=== PATIENT | male | born 1950 | race Caucasian/White ===

== ENCOUNTER → 2024-08-07 14:57 | Outpatient (REF) | payer MEDICARE, OTHER, SELFPAY | LOC: HWRCS 14:57 | PROVIDERS: ATTENDING PHYSICIAN Internal Medicine Cardiovascular Disease; FAMILY PHYSICIAN Family Medicine | DX: I48.21 Permanent atrial fibrillation (principal); I10 Essential (primary) hypertension; I48.19 Other persistent atrial fibrillation | CPT/HCPCS: 93306 ==

== ENCOUNTER 2025-03-11 07:04 | Day surgery (SDC) | payer MEDICARE, OTHER, SELFPAY | END 2025-03-11 09:56 | disposition home or self-care (01) | LOC: CATH 07:04 | PROVIDERS: ATTENDING PHYSICIAN Internal Medicine Cardiovascular Disease; FAMILY PHYSICIAN Family Medicine | DX: I08.1 Rheumatic disorders of both mitral and tricuspid valves (principal); I48.21 Permanent atrial fibrillation; I10 Essential (primary) hypertension; E78.5 Hyperlipidemia, unspecified; J44.9 Chronic obstructive pulmonary disease, unspecified; Z72.0 Tobacco use; Z79.01 Long term (current) use of anticoagulants | CPT/HCPCS: 93312; 93320; 93325 ==

== ENCOUNTER 2025-03-18 06:32 | Day surgery (SDC) | payer MEDICARE, OTHER, SELFPAY ==
[2025-03-18] VITALS (14 sets, daily range): BP systolic 98–123; BP diastolic 58–87; BMI 27.1
[2025-03-18] MEDS: NSS 250 ML IV (07:00)
--- NOTE | 2025-03-18 08:03 | ITS.CL.CATH ---
Scientist Engineer - Catheterization
Cardiac Catheterization
Procedure Report:
CARDIAC CATHETERIZATION REPORT
Date of Procedure: 03/18/2025
Referring: Reymundo Polk M.D.
INDICATION: Severe mitral valve regurgitation.
PROCEDURE:
1. Left heart catheterization.
2. Coronary angiography.
A total of 23 minutes of procedural/moderate sedation was utilized. An independent medical imaging technologist was present to assist with and help manage the patient's level of consciousness and physiologic status.
ACCESS:
1. 6 [place] right rate artery using a modified Seldinger technique.
CATHETERS:
1. 5 [place] JR4.
2. 5 [place] JL 3.5.
HEMODYNAMIC DATA
Weight (kg): 83.2
AO (s/d/x, mmHg): 100/60/79
LV (s/x mmHg): 102/17
LEFT VENTRICULOGRAPHY: Not performed.
CORONARY ANGIOGRAPHY
Dominance: Right.
Left Main: Normal size, trifurcating vessel. There is no coronary artery disease.
LAD: Normal size vessel giving rise to 1 significant diagonal before wrapping around the apex. There is no coronary artery disease.
Ramus: Medium size vessel supplying a substantial portion of the lateral wall. There is no coronary artery disease.
Circumflex: Normal size, nondominant vessel that is essentially a single obtuse marginal which gives rise to several daughter vessels in its distal margin. There are minor luminal irregularities.
RCA: Normal size, dominant vessel. There is a 20-30% lesion in the proximal vessel.
INTERVENTION(S)
None.
Closure Device: Vascular band
Radiation (mGy): 444.47
DAP (cm2.Gy): 30.4472
Fluoroscopy time (minutes): 1.9
CONCLUSIONS
1. Right dominant circulation with luminal irregularities in the circumflex and a 20-30% lesion in the proximal RCA.
2. Mildly elevated filling pressures (LVEDP = 17 mmHg at 83.2 kg).
3. Severe mitral valve regurgitation on echocardiography.
RECOMMENDATIONS:
1. Expectant management after cardiac catheterization via right radial approach.
2. Limited weight bearing on the right for one week.
3. Continued follow-up with outpatient cardiology and CT surgery regarding mitral valve repair/replacement.
4. Aggressive primary prevention with high-dose, high potency statin. Increase atorvastatin to 40 mg daily. Goal LDL <55.
5. OMT/GDMT as hemodynamics will tolerate.
Copy to: Reymundo Polk M.D., Malvin Acosta M.D., Jagjit Bray D.O.
Daniel Watt DO, FACC, FACP
[2025-03-18] MEDS: NSS 1000 IV (08:10)
== END 2025-03-18 11:00 | disposition home or self-care (01) ==
LOC: CATH 06:32
PROVIDERS: ATTENDING PHYSICIAN Internal Medicine Cardiovascular Disease; FAMILY PHYSICIAN Family Medicine; OTHER PHYSICIAN Internal Medicine Cardiovascular Disease
DX: I34.0 Nonrheumatic mitral (valve) insufficiency (principal); I25.10 Atherosclerotic heart disease of native coronary artery without angina pectoris; I10 Essential (primary) hypertension; J44.9 Chronic obstructive pulmonary disease, unspecified; F17.210 Nicotine dependence, cigarettes, uncomplicated; Z79.01 Long term (current) use of anticoagulants
CPT/HCPCS: 99152; C1894; 93458; Q9967

== ENCOUNTER → 2025-03-23 11:08 | Outpatient (REF) | payer MEDICARE, OTHER, SELFPAY | LOC: RCS 11:08 | PROVIDERS: ATTENDING PHYSICIAN Internal Medicine Cardiovascular Disease; FAMILY PHYSICIAN Family Medicine | DX: I48.19 Other persistent atrial fibrillation (principal); I48.21 Permanent atrial fibrillation; I34.0 Nonrheumatic mitral (valve) insufficiency; I10 Essential (primary) hypertension | CPT/HCPCS: 93306 ==

== ENCOUNTER → 2025-04-02 13:05 | Outpatient (REF) | payer MEDICARE, OTHER, SELFPAY | LOC: RAD 13:05 | PROVIDERS: ATTENDING PHYSICIAN Thoracic Surgery (Cardiothoracic Vascular Surgery); FAMILY PHYSICIAN Family Medicine | DX: I34.0 Nonrheumatic mitral (valve) insufficiency (principal); Z01.810 Encounter for preprocedural cardiovascular examination | CPT/HCPCS: 71275; 74174; Q9967 ==

== ENCOUNTER 2025-04-28 05:06 | Inpatient (IN) | payer MEDICARE, OTHER, SELFPAY ==
[2025-04-23 12:00] VITALS: BMI 26.3
[2025-04-23 12:35] LABS: Hematocrit 40.9 % (39.0-52.0); Hemoglobin 14.6 g/dL (13.0-18.0); Mean Corp Hgb Conc. 35.7 g/dL (33.0-37.0); Mean Corpuscular Volume 91.5 fL (80.0-94.0); Nucleated Red Blood Cells % 0 % (-); Platelet Count 244 10^3/uL (130-400); Red Cell Dist. Width 12.4 % (11.5-14.5)
[2025-04-23 12:42] LABS: Urine Character Clear (Clear)
[2025-04-23 12:46] LABS: INR 1.57; PT 19.0 Sec (11.4-14.6)
[2025-04-23 13:09] LABS: ALT (SGPT) 20 U/L (0-50); AST (SGOT) 18 U/L (17-59); Albumin 4.6 g/dl (3.5-5.0); Alkaline Phosphatase 85 U/L (38-126); Blood Urea Nitrogen 15 mg/dl (9-20); Calcium 9.6 mg/dl (8.4-10.2); Carbon Dioxide 22 mmol/L (22-30); Chloride 107 mmol/L (98-107); Estimated Creatinine Clearance 84 ml/min; Glucose 108 mg/dl (70-99); Potassium 4.3 mmol/L (3.5-5.1); Sodium 137 mmol/L (135-145); Total Protein 7.1 g/dl (6.3-8.2); eGFR > 60.00
[2025-04-23 13:59] LABS: Glycohemoglobin (HgbA1c) 5.6 % (4.0-5.6)
--- NOTE | 2025-04-23 14:03 | CM ---
spoke to pt in PAT's, we discussed pre op MVR teaching including driving and lifting restrictions. he is prev indep, lives with his S.O. in a 2 story home with no steps to enter. he denies any dme's. he has the ct surgery educ book, soap and
instructions. he is agreeable to a f/u visit from the ct transitional care nurses after dc. plan is for MVR 04/28/25, cm role explained and all questions answered.
[2025-04-28] VITALS (18 sets, daily range): BP systolic 106–138; BP diastolic 65–96; PULSE 63–68; BMI 25.8
[2025-04-28] MEDS: BACTROBAN 2% OINTMENT 1 APPLIC NASAL ×2 (05:46→19:42)
[2025-04-28] MEDS: LOPRESSOR 25 MG PO (05:56)
[2025-04-28] MEDS: MAGNESIUM OXIDE 500 MG PO (05:57)
[2025-04-28] MEDS: PROTONIX 40 MG PO (05:57)
--- NOTE | 2025-04-28 06:07 | PTCARENOTE ---
Pt admitted to CVICU at 0512. Clipped and prepped for CVOR per protocol. Pt had 2 Hibiclens showers at home. CHG bath done. VS done. Weighed. Pre-op meds given. Metoprolol dosing discussed with PA. Medication reconciliation done. Dr. Acosta at
bedside to see pt this am. Pt planned to go to CVOR at ~0630 with 2 RN escort.
--- NOTE | 2025-04-28 06:16 | W.CVOR.SURPR ---
CVOR Surgeon Immed Pre Op
-
I have examined this patient prior to performance of the scheduled procedure.
The patient's condition is unchanged from the time of the dictated/written History and
Physical and the patient is able to undergo the scheduled procedure.
MV Repair/Replacement, LA MAZE, SHIRLEY E, +/- TV Repair
[2025-04-28 07:39] LABS: Urine Character Clear (Clear)
[2025-04-28 07:55] LABS: ACT+ - POC 120 Seconds (82-134)
--- NOTE | 2025-04-28 08:00 | CM ---
Reviewed chart. Mr. Carranza is in the operating room today. Prior to admission he resides with his significant other in a two story home without any steps to enter. Prior to admission he was independent with ambulation and adls. He has a
prescription plan. Medical work-up in progress. The discharge plan is to return home with his significant other and [facility] when medically stable.
[2025-04-28 08:17] LABS: Urine Red Blood Cell 0-2 /HPF (0-2); Urine White Cell 0-2 /HPF (0-5)
[2025-04-28 08:55] LABS: ACT+ - POC 531 Seconds (82-134)
[2025-04-28 09:26] LABS: B.E. - POC -2.1 mmol/L; Glucose - POC 108 mg/dl (70-99); HCO3 - POC 23 mmol/L (21-28); Hematocrit - POC 34 % PCV (42-52); Hemodilution- POC No; Hemoglobin Calculated - POC 11.6; Ionized Calcium - POC 1.08 mmol/L (1.15-1.33); Lactate - POC 0.40 mmol/L (0.36-0.75); O2 Saturation %Calculated-POC 100.0 % (94-98); PCO2 - POC 41 mmHg (35-48); PO2 - POC 387 mmHg (83-108); Potassium - POC 4.1 mmol/L (3.5-5.1); Sodium - POC 142 mmol/L (136-145); Specimen Type - POC Arterial; pH - POC 7.36 (7.35-7.45)
[2025-04-28 09:40] LABS: ACT+ - POC 614 Seconds (82-134)
[2025-04-28 10:09] LABS: ACT+ - POC 483 Seconds (82-134)
[2025-04-28 10:41] LABS: B.E. - POC -0.8 mmol/L; Glucose - POC 198 mg/dl (70-99); HCO3 - POC 26 mmol/L (21-28); Hematocrit - POC 38 % PCV (42-52); Hemodilution- POC Yes; Hemoglobin Calculated - POC 13.0; Ionized Calcium - POC 1.07 mmol/L (1.15-1.33); Lactate - POC 0.81 mmol/L (0.36-0.75); O2 Saturation %Calculated-POC 99.9 % (94-98); PCO2 - POC 50 mmHg (35-48); PO2 - POC 331 mmHg (83-108); Potassium - POC 7.0 mmol/L (3.5-5.1); Sodium - POC 138 mmol/L (136-145); Specimen Type - POC Arterial; pH - POC 7.32 (7.35-7.45)
[2025-04-28 10:56] LABS: ACT+ - POC 490 Seconds (82-134)
[2025-04-28 11:00] LABS: B.E. - POC -0.5 mmol/L; Glucose - POC 169 mg/dl (70-99); HCO3 - POC 28 mmol/L (21-28); Hematocrit - POC 37 % PCV (42-52); Hemodilution- POC Yes; Hemoglobin Calculated - POC 12.6; Ionized Calcium - POC 1.01 mmol/L (1.15-1.33); Lactate - POC < 0.30 mmol/L (0.36-0.75); O2 Saturation %Calculated-POC 99.9 % (94-98); PCO2 - POC 62 mmHg (35-48); PO2 - POC 409 mmHg (83-108); Potassium - POC 6.7 mmol/L (3.5-5.1); Sodium - POC 139 mmol/L (136-145); Specimen Type - POC Arterial; pH - POC 7.26 (7.35-7.45)
[2025-04-28 11:15] LABS: B.E. - POC -5.6 mmol/L; Glucose - POC 152 mg/dl (70-99); HCO3 - POC 20 mmol/L (21-28); Hematocrit - POC 37 % PCV (42-52); Hemodilution- POC Yes; Hemoglobin Calculated - POC 12.7; Ionized Calcium - POC 1.00 mmol/L (1.15-1.33); Lactate - POC 1.48 mmol/L (0.36-0.75); O2 Saturation %Calculated-POC 99.9 % (94-98); PCO2 - POC 40 mmHg (35-48); PO2 - POC 333 mmHg (83-108); Potassium - POC 4.9 mmol/L (3.5-5.1); Sodium - POC 144 mmol/L (136-145); Specimen Type - POC Arterial; pH - POC 7.31 (7.35-7.45)
[2025-04-28 11:19] LABS: ACT+ - POC 129 Seconds (82-134)
[2025-04-28] MEDS: NEURONTIN PO ×2 (11:41→16:04)
--- NOTE | 2025-04-28 11:46 | W.PN.CT.SURG ---
CT Surgery Operative Note
-
CARDIAC SURGERY OPERATIVE REPORT
Preoperative Diagnosis: Mixed pathology mitral valve insufficiency, atrial functional with some scarring, atrial fibrillation
Postoperative Diagnosis: Same
Procedure(s) Performed:
1. Right mini thoracotomy with left femoral artery and right femoral vein cannulation under BUDDY guidance
2. Radical mitral valve repair (resection of very thick primary cords to the A2 A3 free margin as well as the P2 P3 free margin, cleft closure of these areas, new Vonore-Stevo cord placed to the A2 A3 segment to reinforce, 32 mm band annuloplasty)
3. Placement temporary ventricular pacing wires
4. Trans esophageal echocardiography
5. Open surgical maze, cryoablation of left atrium
6. Left atrial appendage exclusion [40 mm device]
Date of Surgery: 04/28/2025
Comorbidities:
1. Mixed pathology mitral valve insufficiency, atrial functional, type I
2. Longstanding atrial fibrillation
3. COPD/smoker
4. Hypertension
5. Hyperlipidemia
6. Anxiety
7. 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
Attending Surgeon: Malvin Acosta MD, MS
Assistants: Malvin Danielle PA-C (present and necessary for retraction, suctioning, exposure, suture management, wound closure, etc. under my direction)
Anesthesiology: Chico Yañez MD and Karmen Kearney CRNA
Scrub and Circulating RNs: Yuliana Lucas RN with Jah Martinez, CHEATN, Eric Kincaid RN
Agent: Quinton Elliott CCP
Anesthesia: GETA
EBL: per perfusion records
Products: None
CPB Time: 114 minutes
Aortic Cross Clamp Time: 86 minutes
Indication(s) for Procedures: This is a 74-year-old male who is on chronic anticoagulation for his atrial fibrillation. He recently developed shortness of breath while golfing which is new for him. Review of his transthoracic echocardiogram and
transesophageal echocardiogram demonstrated severe dilation of both right and left atria. He had a mixed pathology mitral valve with mostly a type I pathology from atrial functional mechanism with some clefts. He also had some scarring of his free
margin which likely contributed to the poor coaptation. He was offered surgical repair although with his mitral valve pathology he is at slightly higher risk for mitral valve replacement. Concomitant to his mitral valve surgery he will be offered
left atrial ablation as well as left atrial appendage exclusion. His tricuspid valve was to be evaluated into the operating room to see for annular dilatation and level of insufficiency.
Mitral Valve Description: Thickening of the both the anterior and posterior leaflets, there was some tethering at the A2 A3 margin and the P2 P3 margin secondary to a very thick set of cords there. These were resected. The annulus was also dilated
circumferentially and there were collapse at the P2 P3 and P2 P1 areas. On preoperative BUDDY, the leak was essentially torrential with little to no coaptation between the anterior posterior leaflets.
Implants:
1. 32 mm Rushing physio 2 ring annuloplasty, SN [id number]
2. 40 mm left atrial appendage clip, serial number [id number]
3. CV 4 Vonore-Stevo and multiple 5-0 Prolene sutures
MAZE Lesion Sets:
1. Box lesion to posterior LA wall
2. SHIRLEY lesion + SHIRLEY Exclusion
3. Coronary sinus lesion
4. Posterior mitral annular line toward P2/P3
Specimen:
1. Thickened and scarred anterior posterior leaflet cords
Findings: There is left ventricular ejection fraction preoperatively was approximately 60% with no significant regional wall motion abnormalities. Following surgery his EF remained the same at 60% with no new regional wall motion abnormalities. He
had torrential mitral valve insufficiency that was mostly central secondary to atrial dilatation resulting in annular dilatation and also scarring at the free margin with some restricted cords. There is essentially no to little coaptation. His
mitral valve was repaired with a 32 mm ring annuloplasty as well as resection of these cords at the P2 P3 and A2 A3 free margin. I then plicated the margin with 5-0 Prolene sutures eventually closing the cleft and also placed the new CV 4 Vonore-Stevo
suture to the posterior medial papillary muscle head attached to the A2 A3 segment to reinforce it. A total of 12 nonpledgeted sutures were placed circumferentially around the valve anchoring a 32 mm ring angioplasty into place with core knots. A
full left atrial maze was performed isolating the posterior wall, left atrial appendage line as well as the coronary sinus and mitral isthmus lines. The left atrial appendage was also verified to be free of any thrombus or debris preoperatively and
found to be totally occlusive postoperatively with a 40 mm device applied flush to the base. After coming off of cardiopulmonary bypass, there was a trace to mild degree of residual mitral valve insufficiency however given the starting torrential
level of insufficiency I thought this was acceptable. The tricuspid valve had a mild to moderate degree of insufficiency as well given that the annulus was only 3.6 cm in its largest dimension I felt she could be left alone. He initially was in a
junctional/A-fib rhythm and then progressed back into a sinus rhythm. He did not require any inotropic support and cardiac index did improve significantly from initially at 1.5. No blood products were given. Despite cutting down his right groin,
there is difficulty with threading the J-wire from the right common femoral artery. This was aborted and then I decided to cut down the left side and did direct Seldinger insertion using BUDDY guidance which went smoothly.
Description of Procedure: The patient was brought to the operating room and placed supine in the table with their right side bumped up and right arm down. Arterial and central access was performed by anesthesiology. The patient was prepped from chin
to toes in the typical sterile fashion. Trans esophageal evaluation of cardiac function and all valvular structures was conducted. Before commencing, a time out was performed by all members of the team. All were in agreement with the procedure and
laterality and I proceeded. A small right groin incision was made to expose the common femoral artery and vein. A 5-6 cm right lateral muscle sparing thoracotomy sweeping the pec major muscle cephalad at the serratus anterior was performed over the
4th intercostal space verified by visualization of the hilum. A total of 40,000 units of heparin was given. There is difficulty with threading the J-wire up the right common femoral artery and so I opted to cut down the left side and perform direct
cannulation using open Seldinger technique. The common femoral artery and vein were cannulated under transesophageal guidance using open Seldinger technique. The arterial line was verified to have an appropriate bounce and pressure correlating with
testing. Once the ACT was above 400, retrograde autologous priming was done and we commenced cardiopulmonary bypass. Target core temperature was 34�C.
Carbon dioxide was used to flood the field. The course of the phrenic nerve was identified to prevent injury. The pericardium was opened and two stay sutures were placed to facilitate a ``pericardial table.�� The oblique sinus was developed followed
by the inter atrial groove. An antegrade root vent was inserted and secured with a pursestring suture. The pump flow and mean arterial pressure were lowered and an aortic cross clamp was applied to the ascending aorta. A total of 1.2L initial dose
of Antegrade cardioplegia was delivered. We had rapid electro myocardial quiescence at 300 cc of cardioplegia. The ventricle was monitored for distension by echocardiogram during this time. The left atrium was incised and enlarged. A left atrial
lift retractor was placed. The mitral valve was inspected. Cryoablation lines were then performed at this point and allowed to defrost. The mitral valve was repaired as described above. The left atriotomy was closed with 3-0 prolene in a running
fashion leaving a ventricular vent in place to de-air. After filling the heart, the vent was removed and the prolene was secured with a corknot. The left atrial appendage was then accessed across the transverse sinus and clipped with a 40 mm
device. Unipolar ventricular pacing wire was placed on the base of the right ventricle. The patient was placed into Trendelenburg position and pump flows were lowered. The clamp was slowly removed with the root vent turned on. De-airing maneuvers
were performed. We started to rewarm with a target of 36.5�C.
As the heart recovered, the mitral valve and ventricular function were assessed under transesophageal echocardiogram. The LV vent and root vents were removed. Once weaning parameters were satisfactory, cardiopulmonary bypass flow was lowered until
we were off cardiopulmonary bypass the mitral valve was inspected again. All surgical sites were inspected for hemostasis and appeared appropriate. We briefly resumed cardiopulmonary bypass to remove the root vent and secured with 2-0 ethibond
sutures using a corknot. The lines were clamped and the arterial was relocated to the venous cannula to give back volume. A test dose of protamine was delivered and patient was monitored for any adverse reactions followed by complete protamine
dosing. The femoral vessels were decannulated and repaired as indicated. One 19F Kar drain remained in the pleural space and threaded into the pericardium. There was an excellent palpable distal pulses to the MANIFOLD BUILDER cannulation site. Local
analgesia was injected to the thoracotomy. The incision was closed in layers in a running fashion.
All instrument, sponge, and needle counts were confirmed to be correct x 2 at the end of the operation. The patient was transferred to the cardiac intensive care unit in critical but stable condition.
I, Dr. Malvin Acosta, was present, scrubbed for, and performed all critical elements of this procedure.
Malvin Acosta MD, MS
Cardiothoracic Surgeon
[facility]
This dictation was created using the [employer] dictation system. Please excuse any grammatical, typographical, or 'sound alike' errors
[2025-04-28 11:54] LABS: B.E. - POC -3.2 mmol/L; Glucose - POC 122 mg/dl (70-99); HCO3 - POC 23 mmol/L (21-28); Hematocrit - POC 33 % PCV (42-52); Hemodilution- POC Yes; Hemoglobin Calculated - POC 11.4; Ionized Calcium - POC 1.22 mmol/L (1.15-1.33); Lactate - POC 2.48 mmol/L (0.36-0.75); O2 Saturation %Calculated-POC 96.4 % (94-98); PCO2 - POC 45 mmHg (35-48); PO2 - POC 92 mmHg (83-108); Potassium - POC 3.7 mmol/L (3.5-5.1); Sodium - POC 144 mmol/L (136-145); Specimen Type - POC Arterial; pH - POC 7.32 (7.35-7.45)
[2025-04-28 12:10] LABS: Glucose - Point of Care 101 mg/dl (70-99)
[2025-04-28 12:20] LABS: B.E. - POC -2.0 mmol/L; Blood Urea Nitrogen - POC 14 mg/dl (3-120); Chloride - POC 108 mmol/L (96-111); Creatinine - POC 0.79 mg/dl (0.3-1.0); Glucose - POC 98 mg/dl (70-99); HCO3 - POC 28 mmol/L (21-28); Hematocrit - POC 39 % PCV (42-52); Hemodilution- POC Yes; Hemoglobin Calculated - POC 13.2; Ionized Calcium - POC 1.29 mmol/L (1.15-1.33); O2 Saturation %Calculated-POC 92.7 % (94-98); PCO2 - POC 74 mmHg (35-48); PO2 - POC 84 mmHg (83-108); Potassium - POC 4.3 mmol/L (3.5-5.1); Sodium - POC 147 mmol/L (136-145); Specimen Type - POC Arterial; pH - POC 7.19 (7.35-7.45)
[2025-04-28] MEDS: NSS 500 IV (12:27)
[2025-04-28] MEDS: NARCAN 0.4 MG IV (12:27)
[2025-04-28 12:30] LABS: Hematocrit 38.6 % (39.0-52.0); Hemoglobin 13.3 g/dL (13.0-18.0); Platelet Count 168 10^3/uL (130-400)
[2025-04-28 12:34] LABS: INR 1.36; PT 17.1 Sec (11.4-14.6)
[2025-04-28 12:35] LABS: APTT 26.3 Sec (23.4-35.0)
--- NOTE | 2025-04-28 12:35 | PTCARENOTE ---
Received pt from CVOR; pt drowsy/sleepy; NSR on monitor and VSS; Epicardial V wires in placed and box turned off currently; RIDaron Whitehead, Heath floated to 48, Left A-line and PIV all lines leveled and zeroed; Insulin infusing per Glycemic protocol see
flow sheet for details; Lungs diminished; pulse Ox 70-85%, pt placed on BIPAP by respiratory, pulse ox remained low, CTNP at bedside and Narcan IV given see MAR for details; CT x1 to -15 wall suction no air leak and no crepitus noted; hypoactive
bowel sounds; Abad catheter draining clear yellow urine; palpable pulses throughout; no edema noted; all surgical sites C/D/I; see nursing documentation for further details.
[2025-04-28 13:04] LABS: Glucose - Point of Care 121 mg/dl (70-99)
[2025-04-28 13:04] LABS: Blood Urea Nitrogen 14 mg/dl (9-20); Estimated Creatinine Clearance 96 ml/min; Glucose 95 mg/dl (70-99); Magnesium 2.6 mg/dl (1.6-2.3)
--- NOTE | 2025-04-28 13:33 | W.PN.UPDATE ---
Update Note
Progress Note Update
74-year-old male electively admitted on 04/28/2025 for mitral repair, maze and left atrial clip due to severe MR and history of atrial fibrillation with chronic Xarelto use.
IV fluids: 1400
U.O.:� 600
Blood:� none
Wires:� V-wires
Drips: Levophed, Insulin
�
NEURO: extubated in OR>somnolent, pupils +2mm B/L, does not yet follow commands
RESP: Lungs coarse and clear B/L. R mediastinal (25cc on arrival) chest tubes to -20cm suction. Sanguineous drainage
CV: RRR +S1, S2, no S3, no�rub, no murmur. Dermabond to right mini thoracotomy. RIJ w/[place] locked @ 48cm. PA 41/25; CVP 15; C.O 4.05/CI 2.03
ABD: round, soft, no BS
EXT: no edema, +2/4 DP pulses B/L, no femoral bruit, B/L groin cannulation sites intact w/o bleeding, hematoma, bruit; left radial A-line intact
: Abad with clear yellow urine
�
A/P: POD #0 s/p radical mitral valve repair (resection of very thick primary cords to the A2 A3 free margin as well as the P2 P3 free margin, cleft closure of these areas, new [place]-Stevo cord placed to the A2 A3 segment to reinforce, 32 mm band
annuloplasty), open surgical maze, cryoablation of left atrium, left atrial appendage exclusion [40 mm device]
BUDDY: Normal EF�MV mean 3mmHg, tr-mild MR, mild-mod (from sev) TR
- will need instruction regarding antibiotic prophylaxis for dental and invasive procedures
- will need pre discharge TTE
# Acute postop hypercarbic respiratory insufficiency
- Narcan x 1 for hypercarbia (CO2 73) despite CPAP
- CPAP 15/5
# Emphysema
- not on inhalers
- will have pulmonary assess for needs on discharge
# Current tobacco abuse
- need lifelong smoking cessation
- Nicotine patch
# Hx chronic atrial fibrillation
- resume home Eliquis POD #2-3
- continue ASA
- post-op Amio
�
# acute surgical blood loss anemia-expected
- trend CBC
�
# HTN
- uptitrate beta-hossein as tolerated (home dose Toprol XL 100mg daily)
- add Diltiazem if needed (home dose Diltiazem 240mg daily)
�
# Hyperlipidemia
- resume�Lipitor 40mg HS
# Hx bicuspid aortic valve w/o /AI
- continue outpatient cardiology echo surveillance
[2025-04-28 13:41] LABS: B.E. -2.3 mmol/L; HCO3 22.5 mmol/L (21-28); O2 Saturation % 99.8 % (94-98); PCO2 38 mmHg (35-48); PO2 174 mmHg (83-108)
--- NOTE | 2025-04-28 13:42 | CON.INTV ---
Consultation
Consultation Request
Date/Time Consultation Requested: 04/28/2025
Date/Time Consultation Performed: 04/28/2025
Requesting Provider: Dr. Acosta
Performing Provider: Dr. Reggie Abebe
Reason for Consultation: Status post radical mitral valve repair
Medical History
Past Medical History
Past Medical History: Other (See assessment and plan)
Social History
Tobacco: Smoker
Alcohol: Other (34 beers per week.)
Drug: None
Family History
Family History: Reviewed & Not Pertinent
Allergies / Home Medications
Allergies
Allergy/AdvReac Type Severity Reaction Status Date / Time
No Known Allergies Allergy Verified 04/28/25 05:59
Home Medications
�Medication �Instructions �Recorded �Confirmed �Last Taken �Type
lorazepam 0.5 mg tablet 0.5 mg PO DAILYPRN PRN as needed 03/21/19 04/28/25 04/27/25 08:30 History
metoprolol succinate 100 mg 100 mg PO HS Blood Pressure 03/21/19 04/28/25 04/27/25 22:00 History
tablet,extended release 24 hr
diltiazem HCl 240 mg capsule,24 240 mg PO DAILY Blood Pressure 03/11/25 04/28/25 04/25/25 08:21 History
hr,extended release
rivaroxaban 20 mg tablet (Xarelto) 20 mg PO HS Blood Clot 03/18/25 04/28/25 04/24/25 22:00 History
Prevention/Tx
acetaminophen 500 mg tablet 1,000 mg PO Q6H PRN pain 04/22/25 04/28/25 04/26/25 14:00 History
atorvastatin 40 mg tablet 40 mg PO HS High Cholesterol 04/22/25 04/28/25 04/27/25 22:00 History
nicotine 7 mg/24 hr daily 1 patch transdermal Q24H Smoking 04/22/25 04/28/25 04/26/25 09:30 History
transdermal patch Cessation
Review of Systems
-
Unable to Obtain full review of systems at this time due to: Acuity
Vitals / Labs / Diagnostic Testing
Vital Signs
Temp Pulse Resp BP Pulse Ox
96.5 F L 62 12 109/67 100
04/28/25 13:00 04/28/25 13:00 04/28/25 13:00 04/28/25 13:00 04/28/25 13:00
Lab Data
04/28/25 12:07
Laboratory Results
04/28/25
12:07
PT 17.1 H
INR 1.36
APTT 26.3
Microbiology
04/28/25 09:50 Heart Fungal Culture - Preliminary
Culture in progress.
Positive cultures are reported as soon as detected.
Final report to follow in four to five weeks.
Diagnostic Testing:
Physical Exam
-
HEENT: Normocephalic
Cardiovascular: S1/S2
Respiratory: Clear and Non-Labored Respirations
GI: Soft and Non Distended
Neurology: Awake, Alert, No Motor Deficits and Other (On BiPAP, following command)
Skin: Warm
General: Comfortable
Assessment
-
74-year-old man with history of severe MR, atrial fibrillation, COPD electively admitted for mitral valve repair. Surgery underwent on 04/28/2025 without complication. Now in the critical care unit for postoperative care.
Status post radical mitral valve repair-04/28/[address] Acosta
1. Right mini thoracotomy with left femoral artery and right femoral vein cannulation under BUDDY guidance
2. Radical mitral valve repair (resection of very thick primary cords to the A2 A3 free margin as well as the P2 P3 free margin, cleft closure of these areas, new [place]-Stevo cord placed to the A2 A3 segment to reinforce, 32 mm band annuloplasty)
Acute hypercapnic respiratory failure due to recovering from anesthesia.
Conditions present prior admission:
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 Has not seen pulmonary locally.
Active smoker
Atrial fibrillation
Anxiety
Hypertension
History of severe MR with preserved ejection fraction
Hyperlipidemia
Chronic back pain
Assessment and plan:
-
Postoperative day 0
Extubated
Noted to be somnolent: Hypercapnic AB./84
Required BiPAP 15/5-will continue to sedation wears off.
Patient now awake and following commands. ABG has normalized.
If continues to follows commands may transition to nasal cannula oxygen wean off as able.
N.p.o. for now-patient states that he is hungry.
Head of bed elevation
-
Not bronchospastic on exam.
Patient usually not on inhalers
Active smoker-monitor for wheezing.
Chest x-ray: Reviewed showed status post mitral valve repair and left atrial appendage exclusion. Mild agenic pulmonary edema. Right chest tube in place. No pneumothorax.
-
Follow daily CBC
Chest tube without excessive drainage
Hemodynamics -stable.
Hemodynamics with arterial line and PA catheter will follow-up
No vasoactive drugs requirement
Normal renal function
Adequate urinary output
Chest tube with no excessive drainage-no air leak.
Chest x-ray reviewed: With no pneumothorax or fluid collections.
Remain nothing by mouth advance diet when able.
Head of the bed elevation
Glycemic control per protocol
Smoking cessation encouraged.
CT chest 04/02/2025: Reviewed, reviewed showed mild centrilobular emphysema. Mild enlargement of multiple mediastinal and right hilar lymphadenopathy. There is no evidence for pulmonary nodules.
May need to repeat CT of the chest at some point.
Recommend pulmonary outpatient [id number] states that he follows occasionally with a pulmonary doctor at [facility].
DVT prophylaxis when safe from the surgical perspective-eventual to restart anticoagulation
Critical care statement: A total of 31 minutes of critical care time was provided for this patient today. This includes management of unstable vital signs, evaluation of the patient at bedside, reviewing the patient's pertinent medical records
including ventilator settings, arterial blood gases, radiographs, microbiology, laboratory evaluations and discussion with primary team, critical care nursing, and respiratory therapy.
[2025-04-28 13:56] LABS: Glucose - Point of Care 124 mg/dl (70-99)
[2025-04-28] MEDS: TYLENOL PO (14:01)
[2025-04-28] MEDS: ANCEF 10 IV ×2 (14:01)
[2025-04-28] MEDS: NICODERM TRANSDERMAL TRANSDERM (14:01)
[2025-04-28] MEDS: LR 250 ML IV (14:23)
[2025-04-28 15:06] LABS: Glucose - Point of Care 124 mg/dl (70-99)
--- NOTE | 2025-04-28 15:15 | PTCARENOTE ---
BIPAP removed and pt placed on 6l NC; assessment unchanged; NSR on monitor and VSS.
[2025-04-28] MEDS: FLEXERIL 5 MG PO (16:01)
[2025-04-28] MEDS: ZOFRAN 4 MG IV (16:01)
[2025-04-28] MEDS: PACERONE PO (16:04)
[2025-04-28 16:11] LABS: Glucose - Point of Care 94 mg/dl (70-99)
[2025-04-28 16:25] LABS: Hematocrit 36.1 % (39.0-52.0); Hemoglobin 12.6 g/dL (13.0-18.0); Platelet Count 151 10^3/uL (130-400)
--- NOTE | 2025-04-28 16:48 | PTCARENOTE ---
NSR on monitor and VSS; pt resting comfortably in bed and assessment unchanged; Insulin infusing see flow sheet for details.
[2025-04-28] MEDS: ROXICODONE 5 MG PO ×2 (17:07→23:15)
[2025-04-28] MEDS: TORADOL 15 MG IV (17:21)
[2025-04-28 18:07] LABS: Glucose - Point of Care 104 mg/dl (70-99)
[2025-04-28] MEDS: ANCEF 5 IV (19:42)
[2025-04-28] MEDS: SENOKOT-S 1 TABLET PO (19:42)
[2025-04-28] MEDS: DILAUDID 0.25 MG IV (19:42)
--- NOTE | 2025-04-28 20:00 | PTCARENOTE ---
Assumed care of patient at 1900. Patient found resting in bed at time of assessment. Patient is AOx4, follows commands appropriately, moves all extremities. Lung sounds are diminished throughout, saO2 98% on 4L, there is [address] present
draining red sanguineous. Heart sounds are audible, there is a soft rub present on auscultation, pulses are palpable throughout, no edema present. Patient has a v wire attached to temporary pacemaker however the device is off. Patient has active BS
present in all four quadrants and there is campbell draining clear yellow urine. Patient has R lateral chest incision as well as puncture that is approx with surg adhesive CHASE. There is a 4x[address] wound that is CDI. Patient has bilateral
groin incision approx with surg adhesive CHASE both have some ecchymosis around site. There is a R IJ cordis with swan@48cm receiving KVO, L radial Michelle, and R AC PIV. Patient is currently on insulin gtt col 2 and is receiving KVO through [facility].
Vital signs as follows: T-98 RR-15 P-72 BP-126/56 CVP-8 PAP- 38/19 CI-3.19
[2025-04-28 20:08] LABS: Glucose - Point of Care 102 mg/dl (70-99)
[2025-04-28 22:15] LABS: Glucose - Point of Care 90 mg/dl (70-99)
[2025-04-28] MEDS: PACERONE 200 MG PO (23:15)
[2025-04-28] MEDS: NEURONTIN 100 MG PO (23:15)
[2025-04-28] MEDS: TYLENOL 1000 MG PO (23:15)
[2025-04-28] MEDS: LIPITOR 40 MG PO (23:15)
[2025-04-29] VITALS (21 sets, daily range): BP systolic 101–172; BP diastolic 59–93; PULSE 89; O2SAT 93; BMI 26.4
--- NOTE | 2025-04-29 | PTCARENOTE ---
Patient reassessed. Remains SR with occasional PACs on the monitor. VSS. On 2.5 cardene for one hour for hypertension. Pain management with 0.25 dilaudid and aquiles 5. Hypertension resolved off cardene again. Call prieto within reach.
[2025-04-29 00:17] LABS: Glucose - Point of Care 104 mg/dl (70-99)
[2025-04-29] MEDS: ANCEF 5 IV ×2 (03:05→11:30)
[2025-04-29 03:43] LABS: Hematocrit 34.4 % (39.0-52.0); Hemoglobin 12.0 g/dL (13.0-18.0); Mean Corp Hgb Conc. 34.9 g/dL (33.0-37.0); Mean Corpuscular Volume 94.8 fL (80.0-94.0); Platelet Count 153 10^3/uL (130-400); Red Cell Dist. Width 12.8 % (11.5-14.5)
--- NOTE | 2025-04-29 03:49 | W.PN.CT ---
Today's Communication / Plan
-
Plan:
-No major issues overnight. Hemodynamically and neurologically intact
-Extubated in OR and required BIPAP in CVICU for acute postop hypercapnia/respiratory acidosis
-Off all drips but insulin per protocol
-Last CI 3.34, MVO2 73%, 24hrs u/o 660 mL
-Currently in NSR
-Monitor chest tube output: 1med 175/375. CXR looks clear with mild basilar atelectasis, f/u official report
-Cont. current meds (ASA, Amiodarone, Toprol XL, Lipitor; will resume Xarelto on POD#3 or #4)
-D/C'd swan and a-line @ 0430
-Will d/c campbell catheter @ 0600
-Will transition off insulin gtt per protocol today, tele phase when off insulin gtt
-Maintain temporary v-wire
-Maintain cordis
-Encourage use of IS
-Wean off of O2 as tolerated
-OOB into chair/Ambulate
-Will repeat echo in 1-2 days to re-evaluate MV repair
Assessment / Plan
-
Assessment:
-S/p Right mini thoracotomy with left femoral artery and right femoral vein cannulation under BUDDY guidance/Radical mitral valve repair (resection of very thick primary cords to the A2 A3 free margin as well as the P2 P3 free margin, cleft closure of
these areas, new [place]-Stevo cord placed to the A2 A3 segment to reinforce, 32 mm band annuloplasty)/Open surgical maze, cryoablation of left atrium/Left atrial appendage exclusion [40 mm device], by Dr. Acosta, 04/28/25, pod#1
-Mixed pathology mitral valve insufficiency, atrial functional, type I
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
-LVEF 60-65%
-Longstanding atrial fibrillation
-COPD/Active tobacco use
-Hypertension
-Hyperlipidemia
-Anxiety
-Chronic back pain/Sciatica
-Acute intraop- postop blood loss/Anemia (stable without transfusion)
-Acute postop atelectasis
-Acute postop hypovolemia with subsequent hypervolemia
-Acute postop hypercapnia/respiratory acidosis
Discussed patient care with: Cardiology, Nursing, Respiratory Therapy, Pharmacy and Care Team
Subjective
Procedure
S/p Right mini thoracotomy with left femoral artery and right femoral vein cannulation under BUDDY guidance/Radical mitral valve repair (resection of very thick primary cords to the A2 A3 free margin as well as the P2 P3 free margin, cleft closure of
these areas, new [place]-Stevo cord placed to the A2 A3 segment to reinforce, 32 mm band annuloplasty)/Open surgical maze, cryoablation of left atrium/Left atrial appendage exclusion [40 mm device], by Dr. Acosta, 04/28/25
-
Date of Service: April 29, 2025
Pt c/o incisional pain, otherwise feels well
Objective Data
-
Lab Results
04/29/25 03:21
PT 17.1 Sec (11.4-14.6) H 04/28/25 12:07
INR 1.36 04/28/25 12:07
APTT 26.3 Sec (23.4-35.0) 04/28/25 12:07
Vital Signs
Vital Signs
Temp Pulse Resp BP Pulse Ox
97.7 F 80 14 110/66 97
04/29/25 01:59 04/29/25 00:05 04/29/25 01:59 04/29/25 00:00 04/29/25 01:59
CT Intake/Output/Weight
04/28/25 04/28/25 04/29/25
06:59 18:59 06:59
Intake Total 542.0 / 775.0 233.0 / 775.0
Output Total 545 / 940 395 / 940
Balance -3.0 / -165.0 -162.0 / -165.0
SaO2: 97 (2L)
Physical Exam
-
General: Awake, Oriented and AOx3
Cardiovascular: Regular rate & rhythm, No Murmurs, No Rub and No Gallop
Respiratory: Decreased Breath Sounds (at bases, otherwise clear)
Sternum: Stable
Incision: Clean, Dry, Intact and Dressing Intact
Extremities: Other (+trace edema)
Data Reviewed
-
Lab Results: Results Reviewed
Medications: Active Meds Reviewed
Chest X-Ray: Report Reviewed and Image Reviewed
ECG: Report Reviewed and Image Reviewed
[2025-04-29 03:58] LABS: Blood Urea Nitrogen 19 mg/dl (9-20); Calcium 8.4 mg/dl (8.4-10.2); Carbon Dioxide 24 mmol/L (22-30); Chloride 111 mmol/L (98-107); Estimated Creatinine Clearance 96 ml/min; Glucose 101 mg/dl (70-99); Magnesium 2.1 mg/dl (1.6-2.3); Potassium 4.2 mmol/L (3.5-5.1); Sodium 140 mmol/L (135-145); eGFR > 60.00
--- NOTE | 2025-04-29 04:00 | PTCARENOTE ---
Patient reassessed. Remains in SR with PACs on the monitor. AM labs obtained. EKG obtained. AM hygiene care provided. CT wound dressing changed. Patient delined. Abad removed DTV 1215. Araseli 5 administered for pain. OOB to chair without incident.
Call prieto within reach.
[2025-04-29 04:11] LABS: Glucose - Point of Care 105 mg/dl (70-99)
[2025-04-29 04:11] LABS: Glucose - Point of Care 109 mg/dl (70-99)
[2025-04-29 04:11] LABS: Glucose - Point of Care 114 mg/dl (70-99)
[2025-04-29 04:18] LABS: Glucose - Point of Care 106 mg/dl (70-99)
[2025-04-29] MEDS: ROXICODONE 5 MG PO ×3 (06:01→18:31)
[2025-04-29] MEDS: TYLENOL 1000 MG PO ×3 (06:01→22:33)
[2025-04-29 06:11] LABS: Glucose - Point of Care 113 mg/dl (70-99)
--- NOTE | 2025-04-29 07:24 | W.PN.ANS.POP ---
Anesthesia Post Operative
- Anesthesia Post Op Note
Vital Signs Stable-See Nursing Note: Yes
Airway Patent: Yes
Adequate Pain Control: Yes
Change in Mental Status: No
Current Postoperative Nausea & Vomiting: No
Anesthesia Complications: No
General Anesthetic Recall: No
Unplanned Admission: No
Post Op Hydration Adequate: Yes
[2025-04-29] MEDS: PACERONE 200 MG PO ×3 (07:55→22:33)
[2025-04-29] MEDS: PROTONIX 40 MG PO (07:55)
[2025-04-29] MEDS: TOPROL XL 12.5 MG PO (07:55)
[2025-04-29] MEDS: LOW STRENGTH ASPIRIN 81 MG PO (07:55)
[2025-04-29] MEDS: VITAMIN C 500 MG PO (07:56)
[2025-04-29] MEDS: FEOSOL 325 MG PO (07:56)
[2025-04-29] MEDS: LIDOCAINE 4% PATCH TOPICAL (07:56)
[2025-04-29] MEDS: MAGNESIUM OXIDE 500 MG PO ×2 (07:56→20:34)
[2025-04-29] MEDS: SENOKOT-S 1 TABLET PO ×2 (07:56→20:34)
[2025-04-29] MEDS: NEURONTIN 100 MG PO ×3 (07:56→22:32)
[2025-04-29] MEDS: BACTROBAN 2% OINTMENT 1 APPLIC NASAL ×2 (07:57→20:34)
[2025-04-29] MEDS: NICODERM TRANSDERMAL TRANSDERM (07:57)
[2025-04-29 08:05] LABS: Glucose - Point of Care 125 mg/dl (70-99)
--- NOTE | 2025-04-29 08:08 | PTCARENOTE ---
Received pt from machinist 2nd shift RN; pt is AAOX3 and resting comfortably in vhair; NSR with occasional PACs on monitor and VSS; RIJ Cordis and PIV x1 patent; Insulin infusing per Glycemic protocol see flow sheet for details; Epicardial V wire in place
and box turned off; + rub; Lungs diminished; IS to 1500; CT x1 to -20 wall suction, no air leak and no crepitus noted; positive bowel sounds; Abad catheter removed by machinist 2nd shift RN pt DTV by 1215; palpable pulses throughout; no edema noted; all
surgical sites C/D/I; see nursing documentation for further details.
--- NOTE | 2025-04-29 08:19 | W.PN.CD ---
Addendum entered and electronically signed by Marvel Mills MD 04/29/25 09:26:
I saw and examined the patient.
The OPERATIONS RESEARCH DIRECTOR's note was reviewed and I agree with the note.
Comment: he is without complaint, feeling surprisingly well per his report. He is rrr normal s1/s2, no m/r/g. Lungs bibasilar rales that clear with cough. Tele is sinues.
Would resume Doac when ok post op.
encourage ICS, as he is already doing.
remainder as below
Original Note:
Today's Communication / Plan
-
Continue close post-op monitoring and care per CT surgery/CVICU protocol
Resume OAC when safe post-op
Follow telemetry
Encourage IS and ambulation as tolerated/appropriate post-op
Impression / Plan
-
74 y/o male (Dr. Polk patient) with permanent AFIB on Xarelto, hypertension, dyslipidemia, hx smoking, non-obstructive CAD, and severe MR is now s/p mitral valve repair with Dr. Acosta 04/28/25.
Severe mitral regurgitation:
-s/p right mini thoracotomy with radical mitral valve repair, maze, cryoablation of left atrium, and left atrial appendage exclusion, Dr. Acosta 04/28/25.
-He is extubated and on O2 by NC. OOB to chair and using IS.
-remains on insulin drip post-op, which requires intensive monitoring- wean when appropriate, per protocol
-tele and EKG SR
-normal LV function on intra-op BUDDY
-on ASA, metoprolol, amio post-op
Permanent AFIB:
-now in SR s/p procedure as above- follow telemetry
-resume Xarelto when safe post-op
CAD, non-obstructive:
-20-30% lesion in the proximal RCA.
-on Xarelto and statin as OP
Smoking hx:
-quit 20 days ago, which I congratulated him on. He will need to continue this path.
HTN:
-stable
-monitor post-op
Dyslipidemia:
-continue statin
Physical Exam
Vital Signs/Labs
Vital Signs
Temp Pulse Resp BP Pulse Ox
98.2 F 89 18 126/93 96
04/29/25 08:00 04/29/25 08:00 04/29/25 08:00 04/29/25 08:00 04/29/25 08:14
04/28/25 04/29/25 04/30/25
06:59 06:59 06:59
Actual Weight 81.6 kg 83.4 kg
04/29/25 03:21
04/29/25 03:21
PT 17.1 Sec (11.4-14.6) H 04/28/25 12:07
INR 1.36 04/28/25 12:07
APTT 26.3 Sec (23.4-35.0) 04/28/25 12:07
Magnesium 2.1 mg/dl (1.6-2.3) 04/29/25 03:21
Physical Exam
Constitutional: No acute distress
EENT: Anicteric
Cardiovascular: Rhythm & rate is regular
Respiratory: Respiratory effort normal, Lungs clear to auscul. and Other (on O2 by NC)
Neuro/Psych: AO x 3
Other: Skin (right chest incision site well-approximated)
Data Reviewed
-
Date of Service: April 29, 2025
EKG: Tracing Personally Visualized and interpreted (NSR) and Other (tele NSR)
Medical Tests (PFT, Pathology etc): Report Reviewed by me (intra-op BUDDY with normal LV function as noted)
Labs: Labs Reviewed by me
[2025-04-29 09:49] LABS: Glucose - Point of Care 131 mg/dl (70-99)
[2025-04-29] MEDS: FLEXERIL 5 MG PO (09:50)
--- NOTE | 2025-04-29 10:57 | CM ---
Reviewed chart. Met with Mr. Carranza to review discharge plans. He states prior to admission he resides with his significant other in a two story home with one step to enter. He states he has a full flight of steps to get to bedroom/full
bathroom. He states he has a powder room on the first floor. He states prior to admission he was independent with ambulation and adls. He states he has a TENS Machine at home. He states he has a prescription plan. We reviewed a home visit by the
Transitional Care Nurse. He is agreeable to a home visit. Medical work-up in progress. The discharge plan is to return home with significant other and a home visit by the Transitional Care Nurse when medically stable.
--- NOTE | 2025-04-29 11:19 | PTCARENOTE ---
Assessment unchanged; NSR on monitor and VSS; pt resting comfortably in chair.
[2025-04-29] MEDS: NSS IV (11:36)
--- NOTE | 2025-04-29 12:13 | W.PN.INTV ---
Today's Communication / Plan
Recommendations
Continue postoperative care
Discontinue BiPAP
Recommend outpatient pulmonary [id number] will be followed locally. Information will be left in the chart
Sign off
Assessment
-
74-year-old man with history of severe MR, atrial fibrillation, COPD electively admitted for mitral valve repair. Surgery underwent on 04/28/2025 without complication. Now in the critical care unit for postoperative care.
Status post radical mitral valve repair-04/28/[address] Acosta
1. Right mini thoracotomy with left femoral artery and right femoral vein cannulation under BUDDY guidance
2. Radical mitral valve repair (resection of very thick primary cords to the A2 A3 free margin as well as the P2 P3 free margin, cleft closure of these areas, new [place]-Stevo cord placed to the A2 A3 segment to reinforce, 32 mm band annuloplasty)
Acute hypercapnic respiratory failure due to recovering from anesthesia.
Conditions present prior admission:
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 Has not seen pulmonary locally.
Active smoker
Atrial fibrillation
Anxiety
Hypertension
History of severe MR with preserved ejection fraction
Hyperlipidemia
Chronic back pain
Assessment and plan:
-
Postoperative day 1
Improved from the respiratory perspective.
No longer requiring BiPAP.
Mental status baseline.
Not bronchospastic on exam
-
Patient usually not on inhalers
Active smoker-monitor for wheezing.
Hemodynamics -stable.
Vasoactive drugs have been discontinued
PA catheter discontinued
Normal renal function
Adequate urinary output
Chest tube with no excessive drainage-no air leak.
Chest x-ray reviewed 04/29/2025: With no pneumothorax or fluid collections. Possible interstitial edema
Tolerating diet
Head of the bed elevation
Glycemic control per protocol
Smoking cessation encouraged.
CT chest 04/02/2025: Reviewed, reviewed showed mild centrilobular emphysema. Mild enlargement of multiple mediastinal and right hilar lymphadenopathy. There is no evidence for pulmonary nodules.
May need to repeat CT of the chest at some point.
Spirometry preoperatory reviewed showed no airflow obstruction.
He would like to follow locally for pulmonary-inflammation will be left in the chart.
DVT prophylaxis when safe from the surgical perspective-eventual to restart anticoagulation
No additional pulmonary recommendations.
Sign off
Subjective Dataa
Subjective Data
Date of Service:
Date of Service: April 29, 2025
Chief Complaint: Maintenance Painter Follow Up (Status post radical mitral valve repair)
Subjective:
No overnight events
No longer requiring BiPAP
Denies shortness of breath
Pain is controlled
Review of Systems
Cardiopulmonary: Dyspnea (n), Dyspnea on Exertion (n) and Cough (n)
GI: Abdominal Pain (n), Nausea (n) and Vomiting (n)
Objective Data
Data Reviewed
Vital Signs / I&O / Oxygen:
Vital Signs
Temp Pulse Resp BP Pulse Ox
98.4 F 81 20 137/65 95
04/29/25 11:19 04/29/25 12:00 04/29/25 11:19 04/29/25 12:00 04/29/25 11:19
Intake and Output
04/28/25 04/29/25 04/30/25
06:59 06:59 06:59
Intake Total 1088.0 / 1099.2 67.8 / 67.8
Output Total 1085 / 1095 215 / 215
Balance 3.0 / 4.2 -147.2 / -147.2
SaO2 95
Nasal Cannula flow liters per 2
minute
Physical Exam
General: Comfortable
HEENT: Normocephalic
Cardiovascular: S1-S2
Respiratory: Non-Labored Respirations and Chest Tube (No air leak or excessive drainage)
GI: Soft and Non Distended
Neurology: Awake
Skin: Warm
Labs/Micro/Reports
Lab Data
04/29/25 03:21
04/29/25 03:21
Laboratory Results
04/28/25 04/28/25
12:07 13:34
PT 17.1 H
INR 1.36
APTT 26.3
pH Cancelled 7.38
pCO2 Cancelled 38
pO2 Cancelled 174 H
HCO3 Cancelled 22.5
O2 Delivery Level Cancelled
Microbiology
04/28/25 09:50 Heart Gram Stain - Preliminary
04/28/25 09:50 Heart Fungal Culture - Preliminary
Culture in progress.
Positive cultures are reported as soon as detected.
Final report to follow in four to five weeks.
[2025-04-29 12:19] LABS: Glucose - Point of Care 143 mg/dl (70-99)
[2025-04-29] MEDS: FERRLECIT 110 MG IV (13:34)
[2025-04-29] MEDS: KCL 10 MEQ PO (15:55)
[2025-04-29] MEDS: LASIX 20 MG IV (15:55)
--- NOTE | 2025-04-29 16:33 | PTCARENOTE ---
NSR on monitor and VSS; assessment unchanged; pt ambulated in hallway with RN; pt resting comfortably in chair with family at bedside.
[2025-04-29 17:47] LABS: Glucose - Point of Care 148 mg/dl (70-99)
--- NOTE | 2025-04-29 20:00 | SUR.PHASEI ---
Assumed care of patient at 1900. Patient found oob in chair at time of assessment with spouse at bedside. Lung sounds are diminished in the bases, saO2 92% on RA, reports productive occasional cough, and CTx1 with serosanguineous drainage. Heart
sounds are audible, patient is SR/ST on the monitor, patient has normal palpable pulses, no observable edema, and V wires are present but insulated. Patient has active BS, reports passing flatus, and voids clear yellow in urinal. There is a R
lateral chest incision approx with surg adhesive MECHANICAL INSPECTOR, several R lateral chest punctures approx with surg adhesive CHASE, and R lateral CT wound with 4x4 dressing CDI. There are also bilateral groin incisions approx with surg adhesive MECHANICAL INSPECTOR and
ecchymotic around site. Patient has R IJ cordis receiving KVO and R AC 18G PIV available for intermittent infusion. Pain well controlled at this time as reported by patient. Call prieto within reach.
[2025-04-29] MEDS: TOPROL XL 25 MG PO (20:34)
[2025-04-29] MEDS: REMOVE LIDOCAINE PATCH REMOVE (20:35)
[2025-04-29] MEDS: LIPITOR 40 MG PO (22:34)
[2025-04-29] MEDS: MUCINEX 1200 MG PO (22:36)
[2025-04-30] VITALS (18 sets, daily range): BP systolic 100–160; BP diastolic 56–81; PULSE 77; O2SAT 96; BMI 26.6
--- NOTE | 2025-04-30 | PTCARENOTE ---
Patient reassessed. No c/o pain. Remains SR on the monitor. Call prieto within reach.
[2025-04-30 04:31] LABS: Hematocrit 33.2 % (39.0-52.0); Hemoglobin 11.3 g/dL (13.0-18.0); Mean Corp Hgb Conc. 34.0 g/dL (33.0-37.0); Mean Corpuscular Volume 94.9 fL (80.0-94.0); Platelet Count 128 10^3/uL (130-400); Red Cell Dist. Width 13.2 % (11.5-14.5)
[2025-04-30 04:44] LABS: Blood Urea Nitrogen 18 mg/dl (9-20); Calcium 7.6 mg/dl (8.4-10.2); Carbon Dioxide 26 mmol/L (22-30); Chloride 106 mmol/L (98-107); Estimated Creatinine Clearance 84 ml/min; Glucose 119 mg/dl (70-99); Magnesium 2.2 mg/dl (1.6-2.3); Potassium 4.1 mmol/L (3.5-5.1); Sodium 136 mmol/L (135-145); eGFR > 60.00
--- NOTE | 2025-04-30 05:47 | W.PN.CT ---
Today's Communication / Plan
-
pod#2
- for pre discharge TTE 05/01
- DC chest tube
- resume Xarelto 05/01 for hx AF
- cut temp pacing wires prior to DC
Assessment / Plan
-
Assessment:
-S/p Right mini thoracotomy with left femoral artery and right femoral vein cannulation under BUDDY guidance/Radical mitral valve repair (resection of very thick primary cords to the A2 A3 free margin as well as the P2 P3 free margin, cleft closure of
these areas, new [place]-Stevo cord placed to the A2 A3 segment to reinforce, 32 mm band annuloplasty)/Open surgical maze, cryoablation of left atrium/Left atrial appendage exclusion [40 mm device], by Dr. Acosta, 04/28/25, pod#2
-Mixed pathology mitral valve insufficiency, atrial functional, type I
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
-LVEF 60-65%
-Longstanding atrial fibrillation
-COPD/Active tobacco use
-Hypertension
-Hyperlipidemia
-Anxiety
-Chronic back pain/Sciatica
-Acute intraop- postop blood loss/Anemia (stable without transfusion)
-Acute postop atelectasis
-Acute postop hypovolemia with subsequent hypervolemia
-Acute postop hyypoventilation with hypercapnia/respiratory acidosis
Discussed patient care with: Cardiology, Nursing and Respiratory Therapy
Subjective
Procedure
S/p Right mini thoracotomy with left femoral artery and right femoral vein cannulation under BUDDY guidance/Radical mitral valve repair (resection of very thick primary cords to the A2 A3 free margin as well as the P2 P3 free margin, cleft closure of
these areas, new [place]-Stevo cord placed to the A2 A3 segment to reinforce, 32 mm band annuloplasty)/Open surgical maze, cryoablation of left atrium/Left atrial appendage exclusion [40 mm device], by Dr. Acosta, 04/28/25
-
Date of Service: April 30, 2025
Objective Data
-
Lab Results
04/30/25 04:03
04/30/25 04:03
PT 17.1 Sec (11.4-14.6) H 04/28/25 12:07
INR 1.36 04/28/25 12:07
APTT 26.3 Sec (23.4-35.0) 04/28/25 12:07
Vital Signs
Vital Signs
Temp Pulse Resp BP Pulse Ox
99.4 F 76 16 100/59 92
04/30/25 04:06 04/30/25 04:06 04/30/25 04:06 04/30/25 04:06 04/30/25 04:06
CT Intake/Output/Weight
04/29/25 04/29/25 04/30/25
06:59 18:59 06:59
Intake Total 546.0 / 1099.2 107.8 / 227.8 120 / 227.8
Output Total 540 / 1095 905 / 1345 440 / 1345
Balance 6.0 / 4.2 -797.2 / -1117.2 -320 / -1117.2
SaO2: 92
Physical Exam
-
General: AOx3
Cardiovascular: Regular rate & rhythm
Respiratory: Clear
Sternum: Other (right mini-thoracotomy stable)
Incision: Clean, Dry, Intact and Other (left femoral cannulation site intact w/o bleeding/hematoma)
Extremities: No Edema
Data Reviewed
-
Lab Results: Results Reviewed
Medications: Active Meds Reviewed
Chest X-Ray: Report Reviewed and Image Reviewed
ECG: Report Reviewed and Image Reviewed
--- NOTE | 2025-04-30 06:00 | PTCARENOTE ---
Patient reassessed. VSS. AM labs obtained. OOB to chair. Remains SR on the monitor.
[2025-04-30] MEDS: TYLENOL 1000 MG PO ×3 (07:15→22:27)
--- NOTE | 2025-04-30 09:00 | PTCARENOTE ---
Assumed care of patient. Walking rounds completed with previous RN. Pt assessed while he was sitting in the chair. Pt alert and oriented x4. Pt rates right sided chest/back pain 4/10, see MAR. Denies nausea. AVALOS with equal strength throughout. NSR
with PACs and PVCs on tele with rates in the 70s-90s. BP 102/56. Heart tones audible. Bilateral radial and DP pulses palpable. Trace edema to b/l lower extremities. Epicardial v-wire insulated. POX 94% on RA. Lungs diminished in the bases. IS
encouraged-1500ml achieved. Right mediastinal chest tube to -20cm suction draining serosanguineous fluid. No air leaks, tidaling, crepitus noted. output WNL. Occasional non-productive moist cough. Abdomen soft, round, nontender. +BS. +gas. Pt
voiding adequate amounts of leydi urine, reports no issues. Right lateral chest incision approximated, ACID BLEACHER. Right lateral chest puncture sites approximated, ACID BLEACHER. CT dressing CDI. B/l groin incisions approximated with skin glue, ecchymotic, CHASE. Left
chest skin tear with vasalinze gauze & tape, CDI. Right IJ cordis and Right AC 18g PIV intact. See MAR for medication administration. See worklist for complete nursing assessment. Plan of care reviewed and patient in agreement.
[2025-04-30] MEDS: PACERONE 200 MG PO ×3 (09:16→22:26)
[2025-04-30] MEDS: LIDOCAINE 4% PATCH 1 PATCH TOPICAL (09:16)
[2025-04-30] MEDS: PROTONIX 40 MG PO (09:16)
[2025-04-30] MEDS: NEURONTIN 100 MG PO ×3 (09:16→22:26)
[2025-04-30] MEDS: NSS 500 IV (09:16)
[2025-04-30] MEDS: LOW STRENGTH ASPIRIN 81 MG PO (09:16)
[2025-04-30] MEDS: NICODERM TRANSDERMAL 7 MG TRANSDERM (09:17)
[2025-04-30] MEDS: VITAMIN C 500 MG PO (09:17)
[2025-04-30] MEDS: MAGNESIUM OXIDE 500 MG PO ×2 (09:17→19:35)
[2025-04-30] MEDS: SENOKOT-S 1 TABLET PO ×2 (09:17→19:35)
[2025-04-30] MEDS: BACTROBAN 2% OINTMENT 1 APPLIC NASAL ×2 (09:17→19:34)
[2025-04-30] MEDS: TOPROL XL 50 MG PO (09:17)
[2025-04-30] MEDS: MUCINEX 1200 MG PO ×2 (09:17→19:35)
[2025-04-30] MEDS: FLEXERIL 5 MG PO (09:33)
[2025-04-30] MEDS: KCL 20 MEQ PO (09:33)
[2025-04-30] MEDS: LASIX 40 MG IV (09:33)
[2025-04-30] MEDS: CALCIUM GLUCONATE 100 IV (09:33)
--- NOTE | 2025-04-30 09:42 | W.PN.CD ---
Today's Communication / Plan
-
Stable remains in sinus rhythm postop.
Continue postoperative care as directed by CT surgery
Resume anticoagulation when safe from a postoperative standpoint
Impression / Plan
-
74 y/o male (Dr. Polk patient) with permanent AFIB on Xarelto, hypertension, dyslipidemia, hx smoking, non-obstructive CAD, and severe MR is now s/p mitral valve repair with Dr. Acosta 04/28/25.
-s/p right mini thoracotomy with radical mitral valve repair, maze, cryoablation of left atrium, and left atrial appendage exclusion, Dr. Acosta 04/28/25.indication for surgery was severe mitral regurgitation:
- Stable and remains in sinus rhythm postop
-normal LV function on intra-op BUDDY
-on ASA, metoprolol, amio post-op
Permanent AFIB:
-now in SR s/p procedure as above- follow telemetry
-resume Xarelto when safe post-op
CAD, non-obstructive:
-20-30% lesion in the proximal RCA.
-on Xarelto and statin as OP
Smoking hx:
-quit 20 days ago, which I congratulated him on. He will need to continue this path.
HTN:
-stable
-monitor post-op
Dyslipidemia:
-continue statin
Physical Exam
Vital Signs/Labs
Vital Signs
Temp Pulse Resp BP Pulse Ox
99.4 F 81 16 100/59 92
04/30/25 04:06 04/30/25 07:40 04/30/25 04:06 04/30/25 04:06 04/30/25 05:48
04/29/25 04/30/25 05/01/25
06:59 06:59 06:59
Actual Weight 83.4 kg 84.1 kg
04/30/25 04:03
04/30/25 04:03
PT 17.1 Sec (11.4-14.6) H 04/28/25 12:07
INR 1.36 04/28/25 12:07
APTT 26.3 Sec (23.4-35.0) 04/28/25 12:07
Magnesium 2.2 mg/dl (1.6-2.3) 04/30/25 04:03
Physical Exam
Constitutional: No acute distress
Cardiovascular: Rhythm & rate is regular
Respiratory: Wheeze Absent and Rhonchi Absent
GI: Soft
Neuro/Psych: Alert
Other: Other
Chest tube intact
Data Reviewed
-
Date of Service: April 30, 2025
Medical Decision Making: Reviewed Test Results
EKG: Report Reviewed by me
Echo: Report Reviewed by me
Medical Tests (PFT, Pathology etc): Report Reviewed by me
Labs: Labs Reviewed by me
--- NOTE | 2025-04-30 10:45 | PTCARENOTE ---
Right mediastinal chest tube d/c per orders. pt tolerated, Dressing applied. Assisted OOB to bathroom and then to chair.
--- NOTE | 2025-04-30 11:30 | PTCARENOTE ---
HR noted to be in the 110s. EKG confirmed Afib. BP 119/66. Pt denies fluttering, dizziness, etc. CT CLAIM TRAINEE notified.
[2025-04-30] MEDS: CORDARONE 103 MG IV (11:58)
--- NOTE | 2025-04-30 12:00 | PTCARENOTE ---
Amio bolus administered per orders. Pt tolerated.
--- NOTE | 2025-04-30 12:40 | CM ---
Reviewed chart. Met with Mr. Carranza to review discharge plans. He states he is feeling better. Prior to admission he resides with significant other in a two story home with one step to enter. He has a full flight of steps to get to bedroom/full
bathroom. He has a powder room on the first floor. Prior to admission he was independent with ambulation and adls. He has a TENS Unit at home. He has a prescription plan. Medical work-up in progress. The discharge plan is to return home with his
significant other and a home visit by the Transitional Care Nurse when medically stable.
[2025-04-30] MEDS: CORDARONE 518 MG IV (12:41)
[2025-04-30] MEDS: FERRLECIT 110 MG IV (14:00)
--- NOTE | 2025-04-30 15:30 | PTCARENOTE ---
Pt reassessed. Appears to be ST on tele with rates in the 110s. BP 104/70. POX 94%. Pt assisted to the bathroom. Pt tolerated. Voided large amount of leydi urine. Ambulated in the stanley 480', tolerated. Amio gtt infusing via Right IJ cordis.
[2025-04-30] MEDS: REMOVE LIDOCAINE PATCH 1 PATCH REMOVE (19:37)
--- NOTE | 2025-04-30 19:55 | RESPNOTE ---
bipap order d/c'ed and machine pulled
--- NOTE | 2025-04-30 20:00 | PTCARENOTE ---
Assumed care of patient at 1900. Patient found oob in chair at time of assessment. Patient is AOx4, follows commands appropriately, moves all extremities. Lung sounds are diminished in the bases, saO2 95% on RA. Heart sounds are audible, irregular
apical pulse, afib/ST on the monitor, trace ankle edema, normal palpable pulses. Active BS patient is voiding in bathroom. L lateral chest incision with 3x chest punctures approx with surg adhesive LADIES LOCKER ROOM ATTENDANT. Bilateral groin incisions approx with surg
adhesive LADIES LOCKER ROOM ATTENDANT ecchymotic around site. patient has R IJ cordis receiving amio gtt and KVO. Call prieto within reach.
[2025-04-30] MEDS: LIPITOR 40 MG PO (22:26)
[2025-05-01] VITALS (16 sets, daily range): BP systolic 97–135; BP diastolic 58–105; PULSE 115; O2SAT 96; BMI 26.2
--- NOTE | 2025-05-01 | PTCARENOTE ---
Patient reassessed. VSS. No c/o pain. Remains afib/ST on the monitor.
--- NOTE | 2025-05-01 04:00 | PTCARENOTE ---
Patient reassessed. VSS. No c/o pain. OOB to chair. AM hygiene care provided. AM labs obtained. Call prieto within reach.
[2025-05-01 04:41] LABS: Hematocrit 35.5 % (39.0-52.0); Hemoglobin 12.3 g/dL (13.0-18.0); Mean Corp Hgb Conc. 34.6 g/dL (33.0-37.0); Mean Corpuscular Volume 93.7 fL (80.0-94.0); Platelet Count 135 10^3/uL (130-400); Red Cell Dist. Width 12.6 % (11.5-14.5)
[2025-05-01 04:52] LABS: Blood Urea Nitrogen 13 mg/dl (9-20); Calcium 8.9 mg/dl (8.4-10.2); Carbon Dioxide 28 mmol/L (22-30); Chloride 102 mmol/L (98-107); Estimated Creatinine Clearance 96 ml/min; Glucose 124 mg/dl (70-99); Magnesium 2.0 mg/dl (1.6-2.3); Potassium 4.0 mmol/L (3.5-5.1); Sodium 136 mmol/L (135-145); eGFR > 60.00
--- NOTE | 2025-05-01 06:49 | W.PN.CT ---
Today's Communication / Plan
-
pod#3
- hemodynamically stable
- R afib 04/30-05/01 -> amio andra, incr BB
- for pre discharge TTE 05/01
- tolerating RA, spo2 98%
- voiding
- DC chest tube
- resume Xarelto 05/01 for hx AF
- cut temp pacing wires prior to DC
- dispo planning
Assessment / Plan
-
Assessment:
-S/p Right mini thoracotomy with left femoral artery and right femoral vein cannulation under BUDDY guidance/Radical mitral valve repair (resection of very thick primary cords to the A2 A3 free margin as well as the P2 P3 free margin, cleft closure of
these areas, new [place]-Stevo cord placed to the A2 A3 segment to reinforce, 32 mm band annuloplasty)/Open surgical maze, cryoablation of left atrium/Left atrial appendage exclusion [40 mm device], by Dr. Acosta, 04/28/25, pod#3
-Mixed pathology mitral valve insufficiency, atrial functional, type I
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
-LVEF 60-65%
-Longstanding atrial fibrillation
-COPD/Active tobacco use
-Hypertension
-Hyperlipidemia
-Anxiety
-Chronic back pain/Sciatica
-Acute intraop- postop blood loss/Anemia (stable without transfusion)
-Acute postop atelectasis
-Acute postop hypovolemia with subsequent hypervolemia
-Acute postop hyypoventilation with hypercapnia/respiratory acidosis
Discussed patient care with: Care Team
Subjective
Procedure
S/p Right mini thoracotomy with left femoral artery and right femoral vein cannulation under BUDDY guidance/Radical mitral valve repair (resection of very thick primary cords to the A2 A3 free margin as well as the P2 P3 free margin, cleft closure of
these areas, new [place]-Stevo cord placed to the A2 A3 segment to reinforce, 32 mm band annuloplasty)/Open surgical maze, cryoablation of left atrium/Left atrial appendage exclusion [40 mm device], by Dr. Acosta, 04/28/25
-
Date of Service: May 01, 2025
Objective Data
-
Lab Results
04/30/25 04:03
04/30/25 04:03
PT 17.1 Sec (11.4-14.6) H 04/28/25 12:07
INR 1.36 04/28/25 12:07
APTT 26.3 Sec (23.4-35.0) 04/28/25 12:07
Vital Signs
Vital Signs
Temp Pulse Resp BP Pulse Ox
97.5 F 104 18 107/72 95
04/30/25 19:40 04/30/25 19:42 04/30/25 19:40 04/30/25 19:42 04/30/25 19:40
CT Intake/Output/Weight
04/30/25 04/30/25 05/01/25
06:59 18:59 06:59
Intake Total 120 / 357.8 699.9 / 699.9
Output Total 440 / 1345 1675 / 1675
Balance -320 / -987.2 -975.1 / -975.1
SaO2: 95
Physical Exam
-
General: Awake, Oriented and AOx3
Cardiovascular: Irregular rate & rhythm
Respiratory: Clear and Equal
Sternum: Stable
Incision: Clean, Dry and Intact
Extremities: Edema +1
Data Reviewed
-
Lab Results: Results Reviewed
Medications: Active Meds Reviewed
Chest X-Ray: Image Reviewed
Vital Signs / Labs
-
Vital Signs and Labs:
Temp Pulse Resp BP Pulse Ox
97.5 F 114 16 115/74 93
04/30/25 23:00 05/01/25 04:00 04/30/25 23:00 04/30/25 22:32 04/30/25 23:00
05/01/25 04:17
05/01/25 04:17
05/01/25
04:17
WBC 11.4 H
RBC 3.79 L
Hgb 12.3 L
Hct 35.5 L
MCH 32.5 H
Glucose 124 H
[2025-05-01] MEDS: TYLENOL 1000 MG PO ×3 (07:28→21:50)
[2025-05-01] MEDS: LIDOCAINE 4% PATCH 1 PATCH TOPICAL (07:46)
[2025-05-01] MEDS: BACTROBAN 2% OINTMENT 1 APPLIC NASAL ×2 (07:46→20:39)
[2025-05-01] MEDS: PROTONIX 40 MG PO (07:47)
[2025-05-01] MEDS: MUCINEX 1200 MG PO ×2 (07:47→19:49)
[2025-05-01] MEDS: VITAMIN C 500 MG PO (07:47)
[2025-05-01] MEDS: TOPROL XL 50 MG PO (07:47)
[2025-05-01] MEDS: LOW STRENGTH ASPIRIN 81 MG PO (07:47)
[2025-05-01] MEDS: TOPROL XL 25 MG PO (07:47)
[2025-05-01] MEDS: NEURONTIN 100 MG PO ×3 (07:47→21:50)
[2025-05-01] MEDS: MAGNESIUM OXIDE 500 MG PO ×2 (07:47→19:50)
[2025-05-01] MEDS: SENOKOT-S 1 TABLET PO ×2 (07:47→19:50)
[2025-05-01] MEDS: PACERONE 200 MG PO (07:47)
[2025-05-01] MEDS: FLEXERIL 5 MG PO (07:56)
--- NOTE | 2025-05-01 08:00 | PTCARENOTE ---
Resumed care of patient. Walking rounds completed with previous RN. Pt assessed while he was sitting in the chair. Pt alert and oriented x4. States 'discomfort' to right lateral chest/back. Denies nausea, shortness of breath. AVALOS with equal
strength, standby assist in the room and stanley. ST on tele with rates in the 110s. BP 108/68. Heart tones audible. Bilateral radial and DP pulses palpable. Trace ankle edema. Epicardial v-wire to temp pacer box set to 40/10/2. No pacer spikes noted.
POX 98% on RA. Lungs clear throughout. IS encouraged-2000ml achieved. Occasional nonproductive cough noted. Abdomen soft, nontender. +BS. +gas. Pt voiding adequate amounts of clear yellow urine. Right lateral chest incision approximated, TOOTH CUTTER PINION. Right
lateral puncture sites approximated, CHASE. B/l groin sites approximated, TOOTH CUTTER PINION, Right ecchymotic. Left chest skin tear covered, CDI. Right IJ cordis intact infusing amio at 0.5mg/min, NSS KVO. Right AC 18g PIV intact. See MAR for medication
administration. See worklist for complete nursing assessment. Plan of care reviewed and patient in agreement.
[2025-05-01] MEDS: NICODERM TRANSDERMAL TRANSDERM (08:59)
[2025-05-01] MEDS: NSS IV (08:59)
--- NOTE | 2025-05-01 12:00 | PTCARENOTE ---
Addendum entered by Lakeisha Peterson RN 05/01/25 12:13:
CT SALES TRAINING MANAGER notified, orders to hold amio bolus at this time.
Original Note:
Pt reassessed. Pt converted to NSR at 1152 with rates in the 60s. BP 97/58. POX 96% on RA. Surgical sites stable. Pt denies any concerns.
--- NOTE | 2025-05-01 12:00 | CM ---
Reviewed chart. Met with Mr. Carranza to review discharge plans. He states he is feeling better and maybe able to go home soon. He states his significant other will be home until Sunday to assist in his care if needed. We reviewed a home visit by
the Transitional Care Nurse. He is agreeable to a home visit. Prior to admission he resides with his significant other in a two story home with one step to enter. He has a full flight of steps to get to bedroom/full bathroom. He has a powder room
on the first floor. Prior to admission he was independent with ambulation and adls. He has a TENS Machine at home. He has a prescription plan. Medical work-up in progress. The discharge plan is to return home with his significant other and a home
visit by the Transitional Care Nurse when medically stable.
[2025-05-01] MEDS: PACERONE 400 MG PO ×2 (16:23→21:50)
--- NOTE | 2025-05-01 16:29 | PTCARENOTE ---
Pt reassessed. SR with PACs with rates in the 80s. BP 116/67. POX 96% on RA. Surgical sites stable. Epicardial v-wire insulated. Right IJ cordis intact. No acute changes.
--- NOTE | 2025-05-01 17:42 | W.PN.CD ---
Today's Communication / Plan
-
Agree with amio
Agree with oral anticoagulation
Impression / Plan
-
74 y/o male (Card: Rodolfogauri) with permanent AFIB on Xarelto, hypertension, dyslipidemia, hx smoking, non-obstructive CAD, and severe MR is now s/p mitral valve repair with Dr. Acosta 04/28/25.
Severe MR
- s/p right mini thoracotomy with radical mitral valve repair, maze, cryoablation of left atrium, and left atrial appendage exclusion, Dr. Acosta 04/28/25
-normal LV function on intra-op BUDDY
AFib
- Now s/p Ablaiton
- This AM AFlutter 2:1 on 12 lead ekg, was in AFib on 04/30/2025
- resume Xarelto when safe post-op
CAD, non-obstructive:
-20-30% lesion in the proximal RCA.
-on Xarelto and statin as OP
Smoking hx:
-quit 20 days ago, we have congratulated! He will need to continue this path.
HTN:
-stable
-monitor post-op
Dyslipidemia:
-continue statin
Subjective:
No CP
Physical Exam
Vital Signs/Labs
Vital Signs
Temp Pulse Resp BP Pulse Ox
97.9 F 82 16 116/67 96
05/01/25 16:27 05/01/25 16:27 05/01/25 16:27 05/01/25 16:27 05/01/25 16:27
04/30/25 05/01/25 05/02/25
06:59 06:59 06:59
Actual Weight 84.1 kg 82.9 kg
05/01/25 04:17
05/01/25 04:17
PT 17.1 Sec (11.4-14.6) H 04/28/25 12:07
INR 1.36 04/28/25 12:07
APTT 26.3 Sec (23.4-35.0) 04/28/25 12:07
Magnesium 2.0 mg/dl (1.6-2.3) 05/01/25 04:17
Physical Exam
Constitutional: No acute distress
EENT: Anicteric
Cardiovascular: Rhythm & rate is regular and Pedal edema is absent
Respiratory: Respiratory effort normal and Lungs clear to auscul. (decreased at bases)
GI: Soft and Distention absent
Neuro/Psych: AO x 3
Data Reviewed
-
Date of Service: May 01, 2025
--- NOTE | 2025-05-01 18:17 | PTCARENOTE ---
Rec'd Pt as transfer from CVICU,A,A+Ox3, denies pain. Pt in SR on monitor, VSS. Pt OOB sitting in chair, offers no complaints.
[2025-05-01] MEDS: NICODERM TRANSDERMAL 7 MG TRANSDERM (18:35)
[2025-05-01] MEDS: XARELTO 20 MG PO (18:37)
[2025-05-01] MEDS: REMOVE LIDOCAINE PATCH 1 PATCH REMOVE (19:50)
[2025-05-01] MEDS: ATIVAN 0.5 MG PO (21:51)
[2025-05-01] MEDS: LIPITOR 40 MG PO (21:51)
--- NOTE | 2025-05-02 01:23 | PTCARENOTE ---
Received pt @ change of shift. Pt AAOx3, VSS-- NSR w/ PVCs and PACs. Bilateral groins CANDY MAKER HELPER, ecchymotic (L more than R). Lateral incision under nipple covered with ABD pad. Puncture under right axilla CANDY MAKER HELPER. Pt denies pain at this time. Cordis in place
w/out KVO-- reached out to ANDRES Bermeo PA. Order placed for discontinuation of cordis-- CV ICU nurse (Shameka) came down to remove it for the pt. It was removed without issue. Discussed plan of care for evening. Pt verbalizes understanding. Call
prieto within reach.
--- NOTE | 2025-05-02 02:37 | W.PN.CT ---
Today's Communication / Plan
-
POD #4:
-Hemodynamically stabel
-R afib 04/30-05/01 -> Amio gtt, BB increased.
-TTE 05/01 no MR, pg/mg 04/02, EF 50-55%
-Saturating well on RA
-Xaelto resumed 05/01 for hx AFib
-Cut PW prior to discharge
-Amio taper 400 BID per Cardiology
-Continue Lipitor 40, Toprol XL 75 daily
-2V CXR today
-Discuss with attending continuing vs. stopping ASA w/ Xarelto
-Dispo planning
-Discuss w/ attending physican on am rounds, likely D/C home later today.
Assessment / Plan
-
Assessment:
-S/p Right mini thoracotomy with left femoral artery and right femoral vein cannulation under BUDDY guidance/Radical mitral valve repair (resection of very thick primary cords to the A2 A3 free margin as well as the P2 P3 free margin, cleft closure of
these areas, new [place]-Stevo cord placed to the A2 A3 segment to reinforce, 32 mm band annuloplasty)/Open surgical maze, cryoablation of left atrium/Left atrial appendage exclusion [40 mm device], by Dr. Acosta, 04/28/25, pod#4
-Mixed pathology mitral valve insufficiency, atrial functional, type I
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
-LVEF 60-65%
-Longstanding atrial fibrillation
-COPD/Active tobacco use
-Hypertension
-Hyperlipidemia
-Anxiety
-Chronic back pain/Sciatica
-Acute intraop- postop blood loss/Anemia (stable without transfusion)
-Acute postop atelectasis
-Acute postop hypovolemia with subsequent hypervolemia
-Acute postop hyypoventilation with hypercapnia/respiratory acidosis
Discussed patient care with: Cardiology, Nursing, Pharmacy and Care Team
Subjective
Procedure
S/p Right mini thoracotomy with left femoral artery and right femoral vein cannulation under BUDDY guidance/Radical mitral valve repair (resection of very thick primary cords to the A2 A3 free margin as well as the P2 P3 free margin, cleft closure of
these areas, new [place]-Stevo cord placed to the A2 A3 segment to reinforce, 32 mm band annuloplasty)/Open surgical maze, cryoablation of left atrium/Left atrial appendage exclusion [40 mm device], by Dr. Acosta, 04/28/25
-
Date of Service: May 02, 2025
Objective Data
-
PT 17.1 Sec (11.4-14.6) H 04/28/25 12:07
INR 1.36 04/28/25 12:07
APTT 26.3 Sec (23.4-35.0) 04/28/25 12:07
Vital Signs
Vital Signs
Temp Pulse Resp BP Pulse Ox
98.2 F 68 16 107/59 95
05/01/25 22:48 05/02/25 01:00 05/01/25 22:48 05/01/25 22:48 05/01/25 22:48
CT Intake/Output/Weight
05/01/25 05/01/25 05/02/25
06:59 18:59 06:59
Intake Total 213.6 / 1180.2 643.4 / 643.4
Output Total 1125 / 3125 775 / 775
Balance -911.4 / -1944.8 -131.6 / -131.6
SaO2: 95 (Room air )
Physical Exam
-
General: AOx3
Cardiovascular: Regular rate & rhythm ((66 bpm) )
Respiratory: Clear
Incision: Clean, Dry and Intact
Extremities: No Edema
Data Reviewed
-
Lab Results: Results Reviewed
Medications: Active Meds Reviewed
Chest X-Ray: Image Reviewed
[2025-05-02 04:51] VITALS: BP 109/61
[2025-05-02] MEDS: FLEXERIL 5 MG PO ×2 (04:51→13:10)
[2025-05-02] MEDS: TYLENOL 1000 MG PO ×2 (04:51→13:10)
[2025-05-02 05:16] LABS: Hematocrit 32.5 % (39.0-52.0); Hemoglobin 11.0 g/dL (13.0-18.0); Mean Corp Hgb Conc. 33.8 g/dL (33.0-37.0); Mean Corpuscular Volume 96.4 fL (80.0-94.0); Platelet Count 147 10^3/uL (130-400); Red Cell Dist. Width 12.6 % (11.5-14.5)
[2025-05-02 06:03] LABS: Blood Urea Nitrogen 13 mg/dl (9-20); Calcium 8.5 mg/dl (8.4-10.2); Carbon Dioxide 26 mmol/L (22-30); Chloride 104 mmol/L (98-107); Estimated Creatinine Clearance 96 ml/min; Glucose 104 mg/dl (70-99); Magnesium 2.0 mg/dl (1.6-2.3); Potassium 4.4 mmol/L (3.5-5.1); Sodium 134 mmol/L (135-145); eGFR > 60.00
[2025-05-02 07:37] VITALS: BP 111/74
[2025-05-02 07:49] VITALS: BMI 26.2
--- NOTE | 2025-05-02 08:00 | PTCARENOTE ---
Assumed care of pt from prev nsg shift; Pt AAOx3 w/no c/o CP or SOB; Pt c/o 'mild, 2/10' pain at surgical incision site, declined anything for pain at this time. Pt's VSS w/HR 100's & BP 111/74. Pt is ST w/occas PVCs on telemetry monitoring. Pt
w/surgical incision sites w/surgical glue intact. D/C planning discussed & pt verbalized his understanding. Pt w/call prieto within reach & plan ongoing.
[2025-05-02] MEDS: BACTROBAN 2% OINTMENT 1 APPLIC NASAL (09:29)
[2025-05-02] MEDS: MAGNESIUM OXIDE 500 MG PO (09:30)
[2025-05-02] MEDS: MUCINEX 1200 MG PO (09:30)
[2025-05-02] MEDS: LIDOCAINE 4% PATCH 1 PATCH TOPICAL (09:30)
[2025-05-02] MEDS: VITAMIN C 500 MG PO (09:30)
[2025-05-02] MEDS: PROTONIX 40 MG PO (09:30)
[2025-05-02] MEDS: TOPROL XL 50 MG PO (09:30)
[2025-05-02] MEDS: NICODERM TRANSDERMAL 7 MG TRANSDERM (09:31)
[2025-05-02] MEDS: SENOKOT-S 1 TABLET PO (09:31)
[2025-05-02] MEDS: TOPROL XL 25 MG PO (09:31)
[2025-05-02] MEDS: NEURONTIN 100 MG PO (09:32)
[2025-05-02] MEDS: PACERONE 400 MG PO (09:45)
[2025-05-02 10:21] VITALS: BP 107/72
[2025-05-02 10:26] VITALS: BP 118/69
[2025-05-02 10:29] VITALS: BP 107/72; BP 118/69; PULSE 96; O2SAT 96; O2SAT 99
[2025-05-02] MEDS: NSS IV (10:32)
[2025-05-02 10:52] VITALS: BP 118/82
--- NOTE | 2025-05-02 10:56 | W.DCSUMMARY ---
Discharge Summary
Discharge Data
Date of Admission: 04/28/25
Date of Discharge: 05/02/25
-
Pending Results: No
Hospital Course
Primary care physician:
Jagjit Bray
Outpatient power electronics research engineer:
Jeanmarie Viramontes
Inpatient consultants:
Procedures:
. 04/28/25: Right mini thoracotomy with left femoral artery and right femoral vein cannulation under BUDDY guidance, Radical mitral valve repair (resection of very thick primary cords to the A2 A3 free margin as well as the P2 P3 free margin, cleft
closure of these areas, new [place]-Stevo cord placed to the A2 A3 segment to reinforce, 32 mm band annuloplasty), Open surgical maze, cryoablation of left atrium, and Left atrial appendage exclusion [40 mm device]
Admission Diagnosis:
-Mixed pathology mitral valve insufficiency, atrial functional, type I
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
-Longstanding atrial fibrillation
-COPD/Active tobacco use
-Hypertension
-Hyperlipidemia
-Anxiety
-Chronic back pain/Sciatica
Discharge Diagnoses:
-s/p MVR, MAZE, LA jonathan. clip
-Acute intraop- postop blood loss/Anemia (stable without transfusion)
-Acute postop atelectasis
-Acute postop hypercapnia/respiratory acidosis
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
-Longstanding atrial fibrillation
-COPD/Active tobacco use
-Hypertension
-Hyperlipidemia
-Anxiety
-Chronic back pain/Sciatica
HPI: This is a 74-year-old male who is on chronic anticoagulation for his atrial fibrillation. He recently developed shortness of breath while golfing which is new for him. Review of his transthoracic echocardiogram and transesophageal
echocardiogram demonstrated severe dilation of both right and left atria. He had a mixed pathology mitral valve with mostly a type I pathology from atrial functional mechanism with some clefts. He also had some scarring of his free margin which
likely contributed to the poor coaptation. He was offered surgical repair although with his mitral valve pathology he is at slightly higher risk for mitral valve replacement. Concomitant to his mitral valve surgery he will be offered left atrial
ablation as well as left atrial appendage exclusion. His tricuspid valve was to be evaluated in the operating room to see for annular dilatation and level of insufficiency.
Hospital course: The patient was admitted via same day admissions on 04/28/25, taken to the OR and underwent the above noted procedure by Dr. Acosta. He tolerated the procedure well and was transferred to the CVICU in stable condition. He was
extubated later that day and became hypercarbic. Narcan was administered and he was placed on BiPap. His ABG's improved. POD#1 he was off all pressors and BBl was started. His a-line, campbell, CT's, and temprorary pacing wires were removed over the
following days. CXR following chest tube removal was stable and without evidence of pneumothorax. He was started on his home Xarelto for preexisting AF. Amiodarone taper was also added to his medication regimen due to having a MAZE procedure. He was
evaluated and ambulated with physical therapy. It was felt that the patient was ready for discharge to home on POD#4. He was given explicit instructions on diet, wound care, and physical activity/restrictions. He will follow up in our office and
with Cardiology as scheduled. He should follow up with his PCP as needed.
Home medication changes:
Continue:
lorazepam 0.5 mg tablet 0.5 mg PO DAILYPRN
metoprolol succinate 100 mg PO HS
rivaroxaban 20 mg tablet (Xarelto) PO HS
acetaminophen 1,000 mg PO Q6H PRN pain
atorvastatin 40 mg PO HS High
nicotine 7 mg/24 hr daily transdermal patch 1 patch transdermal Q24H
Start:
amiodarone 200 mg tablet (Pacerone) 400 mg (2 tabs) PO BIDx7 days, then 200mg (1 tab) PO BIDx7 days, then 200mg (1 tab) PO DAILY
cyclobenzaprine 10 mg tablet 5 mg (1/2 x 10 mg) PO Q8HPRN muscle spasm/pain
gabapentin 100 mg capsule 100 mg PO TID for 7 days
Discharge Plan
-
Patient Disposition: Home (Routine Discharge)
Discharge Diagnosis/Procedures: mitral valve repair, MAZE, left atrial appendage clip (04/28/25)
Condition: Good
Diet: Low Cholesterol and Low Sodium
Activity: No strenuous activity
Driving Restrictions: No driving for 2 weeks
Bathing Restrictions: OK to Shower
Other Services: Cardiac Rehab
Specialty Instructions: Weigh Daily- Call MD for wt gain/loss 3 lbs overnight/5 lbs in 1 week
Activity Restrictions/Additional Instructions:
Please call to make appointments for Phase II Cardiac Rehab:
1) [facility]: (13 min away): [phone]
2) [facility]: (14 min away): [phone]
3) [facility]: (19 min away): [phone]
ACTIVITY:
-No strenuous activity: no heavy lifting, pushing, pulling anything over 15 pounds for one week
-continue to use stairs as tolerated
DRIVING RESTRICTIONS:
-No driving while requiring narcotic pain meds or muscle relaxants.
WOUND CARE:
-Shower daily. Use soap & water.
-No lotions, creams or powders on incision area.
DIET:
-continue a low fat/low cholesterol diet.
-IF you are diabetic, continue carb controlled diet.
CARDIAC REHAB:
-Please make appointment to start in 5-6 weeks with your local hospital program. (See Cardiac Rehabilitation Discharge Booklet).
SPECIALTY INSTRUCTIONS:
-Weigh yourself daily. Call your physician for any weight gain/loss of 3 lbs overnight or 5 lbs in one week.
-REPORT any clicking noise or uneven appearance of your sternum to your surgeon immediately.
-If you smoke, you are instructed to quit. The [place] smoking hotline phone number is [phone]
Referrals:
CT Transitional Care Nurse [Outside] - in one to two days
Referral Note:
The Cardiothoracic Transitional Care Nurse will call you to set up a visit in 1-2 days.
Angie Beck NP [Specified Professional Personl, Cardiology] - 06/08/25 2:00 pm
Reggie Bradley MD [Active, Pulmonary Medicine] - in three to four weeks
Referral Note: Emphysema/mediastinal lymph nodes
Jagjit Bray DO [Family Provider, [facility]] - in four to six weeks
Referral Note: Please make an appointment in four to six weeks.
Maria Teresa Ha CRNP [Specified Professional Personl, Cardiac Surgery] - 05/26/25 1:30 pm
Prescriptions:
New
amiodarone [Pacerone] 200 mg Tablet
400 mg PO BID Qty: 60 0RF
Rx Instructions:
take 2 tabs twice a day for 7 days, then 1 tab twice a day for 7 days, then 1 tab daily
cyclobenzaprine 10 mg Tablet
5 mg PO Q8HPRN PRN (Reason: muscle spasm) Qty: 20 0RF
gabapentin 100 mg Capsule
100 mg PO TID 7 Days Qty: 21 0RF
Continued
metoprolol succinate 100 MG tablet extended release 24 hr
100 mg PO HS
lorazepam 0.5 MG tablet
0.5 mg PO DAILYPRN PRN (Reason: as needed)
Xarelto 20 mg Tablet
20 mg PO HS
acetaminophen 500 mg Tablet
1,000 mg PO Q6H PRN (Reason: pain)
nicotine 7 mg/24 hr Patch 24 Hour
1 patch TRANSDERMAL Q24H
Patient Comments:
Last patch
atorvastatin 40 mg tablet
40 mg PO HS
Discontinued
diltiazem HCl 240 mg Capsule,Extended Release 24 Hr
240 mg PO DAILY
Discharge Orders:
Discharge Patient (As Directed); Ordered 05/02/25
Ordered By: Juan Rodriguez
Care Plan Goals
Care Plan Goals:
Problem: Readiness for enhanced knowledge related to diagnosis and treatment plan
Goal: Understand your diagnosis and treatment plan needs, including medications if applicable.
Instructions: Know your diagnosis, underlying causes and treatment plan options, including medications if applicable. Consult with your health care team to learn about your diagnosis and treatment plan, including medications if applicable.
Discharge Date and Time
Discharge Date/Time: 05/02/25 13:40
Print Language: YAKUT
== END 2025-05-02 13:40 | disposition home or self-care (01) | DRG 219 ==
LOC: IVU 05:06
PROVIDERS: Physician Assistant Medical; ADMITTING PHYSICIAN Thoracic Surgery (Cardiothoracic Vascular Surgery); CONSULT PHYSICIAN Internal Medicine Critical Care Medicine; FAMILY PHYSICIAN Family Medicine
PROC: 02UG0JZ Supplement Mitral Valve with Synthetic Substitute, Open Approach (ICD-10-PCS; 2025-04-28)
PROC: 02L70CK Occlusion of Left Atrial Appendage with Extraluminal Device, Open Approach (ICD-10-PCS; 2025-04-28)
PROC: B24BZZ4 Ultrasonography of Heart with Aorta, Transesophageal (ICD-10-PCS; 2025-04-28)
PROC: 5A09357 Assistance with Respiratory Ventilation, Less than 24 Consecutive Hours, Continuous Positive Airway Pressure (ICD-10-PCS; 2025-04-28)
PROC: 02580ZZ Destruction of Conduction Mechanism, Open Approach (ICD-10-PCS; 2025-04-28)
PROC: 02BG0ZZ Excision of Mitral Valve, Open Approach (ICD-10-PCS; 2025-04-28)
DX: I34.0 Nonrheumatic mitral (valve) insufficiency (principal); I50.43 Acute on chronic combined systolic (congestive) and diastolic (congestive) heart failure; J96.02 Acute respiratory failure with hypercapnia; D62 Acute posthemorrhagic anemia; E87.29 Other acidosis; J98.11 Atelectasis; I48.21 Permanent atrial fibrillation; E86.1 Hypovolemia; J43.2 Centrilobular emphysema; F17.200 Nicotine dependence, unspecified, uncomplicated; I07.1 Rheumatic tricuspid insufficiency; E78.5 Hyperlipidemia, unspecified; I11.0 Hypertensive heart disease with heart failure; I25.10 Atherosclerotic heart disease of native coronary artery without angina pectoris; E78.00 Pure hypercholesterolemia, unspecified; F41.9 Anxiety disorder, unspecified; G89.29 Other chronic pain; M54.30 Sciatica, unspecified side; Z79.01 Long term (current) use of anticoagulants
CPT/HCPCS: 36415; 71045; 71046; 80048; 80053; 81003; 81015; 82248; 82565; 82805; 82810; 82947; 82962; 83036; 83735; 84520; 85014; 85018; 85025; 85027; 85049; 85610; 85730; 86850; 86900; 86901; 86920; 87070; 87075; 87102; 87176; 87205; 87206; 88305; 93005; 93308; 93312; 93320; 93325; 93880; 94010; 94660; J2916

== ENCOUNTER 2025-06-23 09:00 | Outpatient (RCR) | payer MEDICARE, OTHER, SELFPAY | END 2025-06-23 23:59 | disposition home or self-care (01) | LOC: CRHB 09:00 | PROVIDERS: ATTENDING PHYSICIAN Internal Medicine Cardiovascular Disease | DX: Z95.2 Presence of prosthetic heart valve (principal) | CPT/HCPCS: G0422; G0423 ==

== ENCOUNTER 2025-07-24 16:07 | Outpatient (RCR) | payer MEDICARE, OTHER, SELFPAY | END 2025-07-24 23:59 | disposition home or self-care (01) | LOC: CRHB 16:07 | PROVIDERS: ATTENDING PHYSICIAN Internal Medicine Cardiovascular Disease; FAMILY PHYSICIAN Family Medicine | DX: Z95.2 Presence of prosthetic heart valve (principal) | CPT/HCPCS: G0422; G0423 ==

== ENCOUNTER 2025-08-19 14:32 | Outpatient (RCR) | payer MEDICARE, OTHER, SELFPAY | END 2025-08-19 23:59 | disposition home or self-care (01) | LOC: CRHB 14:32 | PROVIDERS: ATTENDING PHYSICIAN Internal Medicine Cardiovascular Disease; FAMILY PHYSICIAN Family Medicine | DX: Z95.2 Presence of prosthetic heart valve (principal) | CPT/HCPCS: G0422; G0423 ==

== ENCOUNTER 2025-09-22 13:00 | Outpatient (RCR) | payer MEDICARE, OTHER, SELFPAY | END 2025-09-22 23:59 | disposition home or self-care (01) | LOC: CRHB 13:00 | PROVIDERS: ATTENDING PHYSICIAN Internal Medicine Cardiovascular Disease; FAMILY PHYSICIAN Family Medicine | DX: Z95.2 Presence of prosthetic heart valve (principal) | CPT/HCPCS: G0422; G0423 ==